=== PATIENT | female | born 1935 ===

== ENCOUNTER 2018-09-19 15:47 | Emergency (ER) | payer OTHER ==
[~2018-09-19] VITALS: Ht 157.5 cm; Wt 83.9 kg
[2018-09-19] MEDS ORDERED: CARVEDILOL3.125 MG (16:32)
[2018-09-19] MEDS ORDERED: VITAMIN D32000 UNIT (16:32)
[2018-09-19] MEDS ORDERED: NEURONTIN800 MG (16:33)
[2018-09-19] MEDS ORDERED: LISINOPRIL-HCT1 EAC2 (16:33)
[2018-09-19] MEDS ORDERED: CARBIDOPA-LEVO1 EA10 (16:34)
[2018-09-19] MEDS ORDERED: LOSARTAN-HCTZ1 EACH (16:34)
[2018-09-19] MEDS ORDERED: PENTYLENE GLY4000 ML (16:34)
[2018-09-19] MEDS ORDERED: PHENYTOIN100 GM (16:34)
[2018-09-19] MEDS ORDERED: LANTUS SOL100 UNIT/1 (16:35)
[2018-09-19] MEDS ORDERED: ESCITALOPRAM OX10 MG (16:35)
[2018-09-19] MEDS ORDERED: LEVOTHYROXINE25 MCG (16:35)
[2018-09-19] MEDS ORDERED: HUMALOG100 UNIT/1 (16:36)
== END 2018-09-19 21:17 | disposition home or self-care (01) ==
LOC: ER 15:47
DX: R05 Cough (principal); R60.0 Localized edema

== ENCOUNTER 2018-09-25 09:51 | Outpatient (CLI) | payer OTHER ==
[~2018-09-25 09:51] MED LIST: CARBIDOPA-LEVO1 EA10; CARVEDILOL3.125 MG; ESCITALOPRAM OX10 MG; HUMALOG100 UNIT/1; LANTUS SOL100 UNIT/1; LEVOTHYROXINE25 MCG; LISINOPRIL-HCT1 EAC2; LOSARTAN-HCTZ1 EACH; NEURONTIN800 MG; PENTYLENE GLY4000 ML; PHENYTOIN100 GM; VITAMIN D32000 UNIT
== END 2018-09-25 10:00 | disposition home or self-care (01) ==
LOC: NUCLEAR 09:51
DX: I73.9 Peripheral vascular disease, unspecified (principal); M54.5 Low back pain; E78.89 Other lipoprotein metabolism disorders; E55.9 Vitamin D deficiency, unspecified; E03.8 Other specified hypothyroidism; E66.8 Other obesity; M89.8X0 Other specified disorders of bone, multiple sites; E11.9 Type 2 diabetes mellitus without complications; E11.51 Type 2 diabetes mellitus with diabetic peripheral angiopathy without gangrene; G62.89 Other specified polyneuropathies; K21.9 Gastro-esophageal reflux disease without esophagitis; M54.14 Radiculopathy, thoracic region; E11.42 Type 2 diabetes mellitus with diabetic polyneuropathy; M06.89 Other specified rheumatoid arthritis, multiple sites

== ENCOUNTER → 2018-09-28 | Outpatient (CLI) | payer OTHER | END | disposition home or self-care (01) | LOC: NUCLEAR 10:00 | DX: M54.5 Low back pain (principal); E78.89 Other lipoprotein metabolism disorders; E55.9 Vitamin D deficiency, unspecified; E03.8 Other specified hypothyroidism; E66.8 Other obesity; M89.8X0 Other specified disorders of bone, multiple sites; I87.2 Venous insufficiency (chronic) (peripheral); E11.9 Type 2 diabetes mellitus without complications; E11.51 Type 2 diabetes mellitus with diabetic peripheral angiopathy without gangrene; E11.42 Type 2 diabetes mellitus with diabetic polyneuropathy; G62.89 Other specified polyneuropathies; K21.9 Gastro-esophageal reflux disease without esophagitis; I80.8 Phlebitis and thrombophlebitis of other sites; M54.14 Radiculopathy, thoracic region; M06.89 Other specified rheumatoid arthritis, multiple sites ==

== ENCOUNTER → 2019-09-01 | Outpatient (CLI) | payer OTHER | END | disposition home or self-care (01) | LOC: NUCLEAR 11:00 | DX: I87.2 Venous insufficiency (chronic) (peripheral) (principal) ==

== ENCOUNTER → 2022-04-17 | Outpatient (CLI) | payer OTHER | END | disposition home or self-care (01) | LOC: NUCLEAR 12:49 | PROVIDERS: ATTEND Internal Medicine | DX: M81.0 Age-related osteoporosis without current pathological fracture (principal) ==

== ENCOUNTER 2022-08-29 08:51 | Emergency (ER) | payer OTHER | END 2022-08-29 17:31 | disposition home or self-care (01) | LOC: ER 08:51 | DX: U07.1 COVID-19 (principal); R60.0 Localized edema; R41.0 Disorientation, unspecified; E11.9 Type 2 diabetes mellitus without complications; Z79.4 Long term (current) use of insulin; I10 Essential (primary) hypertension; E03.9 Hypothyroidism, unspecified ==

== ENCOUNTER 2025-10-22 07:42 | Emergency (ER) | payer OTHER ==
[~2025-10-22] VITALS: Ht 167.6 cm; Wt 73.0 kg
[2025-10-22] MEDS ORDERED: LEVALBUTEROL HCL 1.25 MG/3 ML SOLUTION IH SCH (08:05)
[2025-10-22] MEDS ORDERED: CEFTRIAXONE SODIUM 1,000 MG VIAL IV ONE (08:15)
[2025-10-22] MEDS ORDERED: 0.9 % SODIUM CHLORIDE 1,000 ML IV ONE (08:15)
[2025-10-22] MEDS ORDERED: FAMOtidine 10 MG/ML (4ML VIAL) IV ONE (08:15)
[2025-10-22 10:40] LABS: BASO % 0.3 % (0.1-1.2); EOS # 0.01 (0.04-0.54); EOS % 0.1 % (0.7-7.0); LYMPH # 1.54 (1.18-3.74); LYMPH % 14.1 % (19.3-53.1); MEAN PLATELET VOLUME 9.40 fl (9.4-12.4); MONO # 0.62 (0.24-0.82); MONO % 5.7 % (4.7-12.5); NEUT # 8.71 (1.56-6.13); NEUT % 79.4 % (34.0-71.1); RED CELL DISTRIBUTION WIDTH 15.1 % (11.6-14.4)
[2025-10-22 10:42] LABS: INR 1.1
[2025-10-22 10:49] LABS: ALT/SGPT 24.0 U/L (12-78); AST/SGOT 31.0 U/L (15-37); BILIRUBIN TOTAL 0.68 mg/dL (0.3-1.2); BUN CREA RATIO 25.0 (7.0-25.0); CREATININE SERUM 0.69 mg/dL (0.55-1.02); GFR 80.29; GLOBULINA 4.9 G/DL (2.4-3.5); OSMOLALITY SERUM 269.0 MOSM/KG (275-295)
[2025-10-22 10:51] LABS: GLUCOSE FASTING 249.0 mg/dL (65-100)
[2025-10-22] MEDS ORDERED: INSULIN REGULAR, HUMAN 1,000 UNIT/10 ML UNITS SUBCUTANEO ONE (11:30)
[2025-10-22] MEDS ORDERED: DEXTROSE 50 % IN WATER 0.5 G/ML DISP.SYRIN IV PRN (11:30)
[2025-10-22] MEDS ORDERED: INSULIN LISPRO 1,000 UNIT/10 ML UNITS SUBCUTANEO PRN (11:30)
[2025-10-22] MEDS ORDERED: PEPCID AC20 MG PO (12:39)
[2025-10-22] MEDS ORDERED: BACTRIM DS TAB1 EACH PO (12:39)
== END 2025-10-22 14:29 | disposition home or self-care (01) ==
LOC: ER 07:42
PROVIDERS: General Practice
DX: S39.82XA Other specified injuries of lower back, initial encounter (principal); W07.XXXA Fall from chair, initial encounter; Y93.89 Activity, other specified; Y92.018 Other place in single-family (private) house as the place of occurrence of the external cause; G30.8 Other Alzheimer's disease; F02.80 Dementia in other diseases classified elsewhere, unspecified severity, without behavioral disturbance, psychotic disturbance, mood disturbance, and anxiety; I10 Essential (primary) hypertension; E11.9 Type 2 diabetes mellitus without complications; Z79.4 Long term (current) use of insulin; R06.02 Shortness of breath
CPT/HCPCS: 36415; 70450; 71045; 72125; 74176; 93005; 94640; 96365; 96366; 99284; J0696; J1815; J3490; J7030

== ENCOUNTER 2025-11-20 11:33 | Emergency (ER) | payer OTHER ==
[~2025-11-20] VITALS: Ht 152.4 cm; Wt 72.6 kg
[~2025-11-20 11:33] MED LIST changes: +BACTRIM DS TAB1 EACH PO; +PEPCID AC20 MG PO
[2025-11-20] MEDS ORDERED: 0.9 % SODIUM CHLORIDE 500 ML IV ONE ×2 (12:15)
[2025-11-20 12:29] LABS: BASO % 0.4 % (0.1-1.2); EOS # 0.03 (0.04-0.54); EOS % 0.3 % (0.7-7.0); LYMPH # 1.11 (1.18-3.74); LYMPH % 11.1 % (19.3-53.1); MEAN PLATELET VOLUME 9.70 fl (9.4-12.4); MONO # 0.56 (0.24-0.82); MONO % 5.6 % (4.7-12.5); NEUT # 8.22 (1.56-6.13); NEUT % 82.3 % (34.0-71.1); RED CELL DISTRIBUTION WIDTH 16.6 % (11.6-14.4)
[2025-11-20 13:17] LABS: BUN CREA RATIO 24.0 (7.0-25.0); CREATININE SERUM 0.71 mg/dL (0.55-1.02); GFR 77.69; GLUCOSE FASTING 69.0 mg/dL (65-100); OSMOLALITY SERUM 270.0 MOSM/KG (275-295)
[2025-11-20 13:58] LABS: COVID-19 AG NEGATIVE (NEGATIVE)
[2025-11-20] MEDS ORDERED: POTASSIUM CHLORIDE/D5-0.9%NACL 1,000 ML IV ONE (15:00)
[2025-11-20] MEDS ORDERED: MAGNESIUM SULFATE 50% 1,000 MG/2 ML VIAL ONE (15:29)
[2025-11-20 16:38] LABS: URINE APPEARANCE Clear; URINE BILIRRUBIN Negative (NEGATIVE); URINE BLOOD Negative; URINE COLOR Dark Yellow; URINE KETONE Trace (NEGATIVE); URINE LEUKOCYTE Small; URINE NITRATE Negative; URINE PROTEIN Trace (NEGATIVE); URINE UROBILINOGEN 2.0 E.U./dl
[2025-11-20 16:42] LABS: URINE BACTERIA 62.9 uL (0.0-1933); URINE EPITHELIAL CELLS 11.1 uL (0.0-38.8); URINE RBC 9.3 uL (0.0-20.8); URINE WBC 28.9 uL (0.0-23.2)
[2025-11-20 16:48] LABS: URINE CAST 0.42 uL (0.0-1.40); URINE GLUCOSE 250 MG/DL (NEGATIVE)
[2025-11-20 17:21] LABS: TYPE CELLS SQUAMOUS; URINE MUCUS MODERATE; URINE YEAST FEW /hpf
[2025-11-20 20:59] LABS: ALT/SGPT 30.0 U/L (12-78); AST/SGOT 26.0 U/L (15-37); BILIRUBIN TOTAL 0.5 mg/dL (0.3-1.2); BUN CREA RATIO 18.0 (7.0-25.0); CREATININE SERUM 0.84 mg/dL (0.55-1.02); GFR 63.99; GLOBULINA 4.3 G/DL (2.4-3.5); OSMOLALITY SERUM 282.0 MOSM/KG (275-295)
[2025-11-20 21:08] LABS: GLUCOSE FASTING 265.0 mg/dL (65-100)
[2025-11-21] MEDS ORDERED: TRAMADOL HCL 50 MG TABLET PO ONE (00:15)
[2025-11-21] MEDS ORDERED: TRAMADOL HCL50 MG PO (00:20)
[2025-11-21] MEDS ORDERED: HYDROGEN PEROXIDE 473 ML BOTTLE TOP ONE (01:28)
== END 2025-11-21 01:32 | disposition home or self-care (01) ==
LOC: ER 11:33
PROVIDERS: Emergency Medicine; Preventive Medicine Public Health & General Preventive Medicine
DX: E16.0 Drug-induced hypoglycemia without coma (principal); T38.3X5A Adverse effect of insulin and oral hypoglycemic [antidiabetic] drugs, initial encounter; E87.6 Hypokalemia; I10 Essential (primary) hypertension; E03.8 Other specified hypothyroidism; E11.9 Type 2 diabetes mellitus without complications; Z79.4 Long term (current) use of insulin; Z20.822 Contact with and (suspected) exposure to COVID-19
CPT/HCPCS: 36415; 51702; 71045; 93005; 96365; 99283; J7042